=== PATIENT | female | born 1960 | race Caucasian/White ===

== ENCOUNTER 2022-01-02 10:06 | Outpatient (CLI) | payer MEDICARE, OTHER ==
[~2022-01-02 10:06] MED LIST: LACT1CAP26 PO
== END 2022-01-02 23:59 | disposition home or self-care (01) ==
LOC: RAD 10:06
PROVIDERS: ATTEND General Practice
DX: I51.7 Cardiomegaly (principal); F11.20 Opioid dependence, uncomplicated
CPT/HCPCS: 93005

== ENCOUNTER 2024-02-24 08:51 | Outpatient (CLI) | payer MEDICARE, OTHER | END 2024-02-24 23:59 | disposition home or self-care (01) | LOC: RAD 08:51 | PROVIDERS: ATTEND Physician Assistant | DX: I49.8 Other specified cardiac arrhythmias (principal); F11.20 Opioid dependence, uncomplicated | CPT/HCPCS: 93005 ==